=== PATIENT | male | born 1970 | race Caucasian/White ===

== ENCOUNTER 2018-03-14 10:22 | Emergency (ER) | payer BC ==
--- OUTSIDE RECORDS SUMMARY | 2018-03-14 11:17 | XMS REPORT ---
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 Payers Type Date Identification Numbers Payment Provider Subscriber Health Maintenance Policy Number: BCBS Ppo Simon Ng Organization (O) [id number] PayID: [id number] [address] [address] [place] [address] Medigap Part B Expires: 10/17/2015 Policy Number: [facility] Simon Ng [id number] PayID: [id number] [address] [address] [place] [phone] Problems Date Description Provider Status Onset: 01/09/2014 Neck sprain Carmita Morrow PA Active Onset: 01/01/2012 Insomnia Carmita Morrow PA Active Onset: 05/28/2011 Irritable bowel syndrome Carmita Morrow PA Active Onset: 05/28/2011 Benign essential hypertension Carmita Morrow PA Active Onset: 05/28/2011 Mixed hyperlipidemia Carmita Morrow PA Active Family History Date Family Member(s) Problem(s) Comments Father Hypertension Father Hypercholesterolemia Father Thyroid Disease Mother Hypertension Mother Cancer, Colon Mother Asthma Children 2 First Son No Current Problems First Daughter No Current Problems Siblings 5 : (2010) (age 49 Years) Second Brother due to Accident tractor Second Brother No Current Problems Third Brother Hypertension Social History Type Date Description Comments Education Highest level completed, 12th grade Marital Status Lives With Spouse Lives With Daughter Lives With Son 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 Cigarette Use Never Smoked Cigarettes Smokeless Tobacco Current Smokeless Tobacco User, Uses 2 times Daily ETOH Use Denies alcohol use Smoking Patient has never smoked Daily Caffeine Consumes on average 3 cups of coffee per day Allergies, Adverse Reactions, Alerts Date Description Reaction Status Severity Comments 02/26/2017 NKDA active 02/26/2017 Seasonal active Medications Medication Date Status Form Strength Qnty SIG Indications Ordering Provider Lisinopril 03/11/ Active Tablets 10mg 30tabs 1 by I10 Yu 2018 mouth Sarahi MD daily in the morning Fluticasone 08/31/ Active Suspension 50mcg/Act 16unit inhale H68.022 Yu Propionate 2016 s one spray Sarahi MD in each nostril twice a day J30.9 Cyclobenzaprine 02/26/2017 Active Tablets 10mg 90tabs take one S16.1xxS Yu, HCL tablet by MD Sarahi mouth at bedtime (caution: can cause sedation) M54.2 Zolpidem Tartrate 02/06/2016 Active Tablets 5mg 30tabs 1 by G47.00 Yu mouth MD Sarahi every night at bedtime as needed Lansoprazole 11/19/[address] 30mg 90caps take one K21.9 Yu, capsule MD Sarahi by mouth every day as needed Famciclovir 07/11/2013 Active Tablets 500m 9tabs 3 by B00.89 teresa Nicholas mouth x1 MD Sarahi as needed onset of cold sore Naproxen Sodium 05/29/2010 Active Tablets 550m 180tabs take one M54.2 Nicholas, g tablet by MD Sarahi mouth twice a day as needed Skelaxin 08/11/2016 Hx Tablets 800m 14tabs 1 po qhs S16.1xx [place], - g prn S DO Raul 02/26/2017 Silvadene 05/14/2016 Hx Cream 1% 50gm Apply to [place], - burn bid DO Raul 05/21/2016 x 1 week and prn Cyclobenzaprine 06/26/2015 Hx Tablets 10mg 90tabs take one S16.1xx [place], HCL - tablet by Sarbjit Carter DO 08/11/2016 mouth at bedtime (caution: can cause sedation) Flonase 01/09/2014 Hx Suspension 50mc 16units inhale Yu, - g/Ac one spray MD Sarahi 08/31/2017 t in each nostril twice a day Cyclobenzaprine 07/11/2013 Hx Tablets 5mg 90tabs 1 po qhs [place], HCL - prn pain DO Raul 06/26/2015 caution: sedation Niacin 12/04/2010 Hx Tablets 500m 1 po Francisco, - g daily MD Austin 02/06/2016 Atenolol 05/01/2010 Hx Tablets 100m 90tabs take one I10 Nicholas, - g tablet by MD Sarahi 03/11/2018 mouth every day Nexium 11/29/[address] 40mg 90caps 1 po [place], - daily prn DO Raul 11/19/2015 Immunizations CPT Code Status Date Vaccine Lot # [id number] Given 08/15/2016 Tdap (Adacel) Ages 7 And Above Only 39236 Given 07/11/2013 Afluria Or Fluvirin Flu Vac Intramuscular 79568 Given 07/08/2012 Afluria Or Fluvirin Flu Vac Intramuscular 85384 Given 08/06/2010 Tdap (Adacel) Ages 7 And Above Only 00449 Given 07/30/2008 Afluria Or Fluvirin Flu Vac Intramuscular 72802 Given 07/30/2008 Afluria Or Fluvirin Flu Vac Intramuscular [id number] Refused 03/11/2018 Afluria Imunization 97695 Refused 02/26/2017 Influenza Virus Vaccine,Quadrivalent,Split,Preserv Free 3 Yrs+ Vital Signs Date Vital Result Comment 03/11/2018 Weight 266.00 lb Heart Rate 66 /min BP Systolic 122 mmHg BP Diastolic 80 mmHg Respiratory Rate 18 /min Height 73.5 inches 6'1.50" BMI (Body Mass Index) 34.6 kg/m2 08/31/2017 Weight 260.00 lb Heart Rate 72 /min BP Systolic 120 mmHg BP Diastolic 80 mmHg Respiratory Rate 18 /min Height 73.5 inches 6'1.50" BMI (Body Mass Index) 33.8 kg/m2 02/26/2017 Weight 262.00 lb PT Refused To Take Off Boots Heart Rate 70 /min BP Systolic 138 mmHg BP Diastolic 86 mmHg Respiratory Rate 18 /min Height 73.5 inches 6'1.50" BMI (Body Mass Index) 34.1 kg/m2 08/11/2016 Weight 262.00 lb Heart Rate 70 /min BP Systolic 126 mmHg BP Diastolic 80 mmHg Respiratory Rate 18 /min Height 73.5 inches 6'1.50" BMI (Body Mass Index) 34.1 kg/m2 02/06/2016 Weight 258.00 lb Heart Rate 78 /min BP Systolic 128 mmHg BP Diastolic 84 mmHg Respiratory Rate 18 /min Height 73.5 inches 6'1.50" BMI (Body Mass Index) 33.6 kg/m2 06/26/2015 Weight 262.00 lb BP Systolic 158 mmHg BP Diastolic 90 mmHg BP Systolic Recheck 142 mmHg BP Diastolic Recheck 86 mmHg Height 73.5 inches 6'1.50" BMI (Body Mass Index) 34.1 kg/m2 07/04/2014 Weight 254.00 lb Heart Rate 72 /min BP Systolic 120 mmHg BP Diastolic 76 mmHg Respiratory Rate 18 /min Height 73.5 inches 6'1.50" 07/03/2014 BP Systolic 126 mmHg BP Diastolic 76 mmHg 07/03/2014 Weight 254.00 lb Heart Rate 70 /min BP Systolic 134 mmHg BP Diastolic 80 mmHg Respiratory Rate 18 /min Height 73.5 inches 6'1.50" 01/09/2014 Weight 258.00 lb Heart Rate 68 /min BP Systolic 132 mmHg BP Diastolic 80 mmHg Respiratory Rate 18 /min Height 73.5 inches 6'1.50" 07/11/2013 Weight 256.00 lb Heart Rate 68 /min BP Systolic 120 mmHg BP Diastolic 68 mmHg Respiratory Rate 18 /min 01/06/2013 Weight 256.00 lb Heart Rate 76 /min BP Systolic 130 mmHg BP Diastolic 80 mmHg Respiratory Rate 18 /min 07/08/2012 Weight 251.00 lb Heart Rate 70 /min BP Systolic 122 mmHg BP Diastolic 70 mmHg Respiratory Rate 18 /min Height 73.5 inches 6'1.50" 01/01/2012 Weight 247.00 lb Heart Rate 74 /min BP Systolic 126 mmHg BP Diastolic 80 mmHg Respiratory Rate 18 /min Height 73.5 inches 6'1.50" 05/28/2011 Weight 243.00 lb Heart Rate 78 /min BP Systolic 120 mmHg BP Diastolic 80 mmHg Respiratory Rate 20 /min Height 73.5 inches 6'1.50" 12/04/2010 BP Systolic 130 mmHg BP Diastolic 86 mmHg 12/04/2010 Weight 242.00 lb Heart Rate 60 /min BP Systolic 118 mmHg L Arm BP Diastolic 80 mmHg L Arm Respiratory Rate 18 /min 05/29/2010 Weight 244.00 lb Heart Rate 64 /min BP Systolic 132 mmHg l arm BP Diastolic 88 mmHg l arm Respiratory Rate 18 /min 11/29/2009 Weight 235.00 lb Heart Rate 77 /min BP Systolic 126 mmHg BP Diastolic 74 mmHg Respiratory Rate 17 /min 12/20/2008 Body Temperature 97.9 F Weight 236.00 lb Heart Rate 76 /min BP Systolic 120 mmHg BP Diastolic 80 mmHg Respiratory Rate 15 /min 10/19/2008 Weight 240.00 lb Heart Rate 60 /min BP Systolic 128 mmHg BP Diastolic 82 mmHg Respiratory Rate 14 /min Height 74.5 inches 6'2.50" 07/11/2008 BP Systolic 116 mmHg BP Diastolic 86 mmHg 07/11/2008 Weight 240.00 lb Heart Rate 60 /min BP Systolic 120 mmHg BP Diastolic 90 mmHg Height 74.5 inches 6'2.50" 03/02/2008 BP Systolic 124 mmHg BP Diastolic 86 mmHg 03/02/2008 Weight 240.00 lb Heart Rate 72 /min BP Systolic 134 mmHg BP Diastolic 90 mmHg Respiratory Rate 16 /min Height 74.5 inches 6'2.50" 2007 BP Systolic 112 mmHg BP Diastolic 74 mmHg 2007 Weight 232.00 lb Heart Rate 64 /min BP Systolic 130 mmHg BP Diastolic 90 mmHg Height 74.5 inches 6'2.50" 10/14/2007 Weight 230.00 lb Heart Rate 73 /min BP Systolic 122 mmHg BP Diastolic 86 mmHg Respiratory Rate 18 /min Height 74.5 inches 6'2.50" 08/31/2007 BP Systolic 132 mmHg BP Diastolic 90 mmHg 08/31/2007 Weight 233.00 lb Heart Rate 84 /min BP Systolic 148 mmHg BP Diastolic 90 mmHg Respiratory Rate 18 /min Height 74.5 inches 6'2.50" 06/21/2007 BP Systolic 134 mmHg BP Diastolic 94 mmHg 06/21/2007 Weight 231.00 lb Heart Rate 69 /min BP Systolic 128 mmHg BP Diastolic 90 mmHg Respiratory Rate 18 /min Height 74.5 inches 6'2.50" 08/23/2006 Body Temperature 97.6 F Heart Rate 80 /min BP Systolic 124 mmHg BP Diastolic 84 mmHg Respiratory Rate 12 /min Height 74.5 inches 6'2.50" 06/22/2006 Weight 226.25 lb Heart Rate 78 /min BP Systolic 128 mmHg BP Diastolic 90 mmHg Respiratory Rate 10 /min Height 74.5 inches 6'2.50" Results Test Date Test Result H/L Range Note Comprehensive Met Panel-FCMG 03/03/2018 Sodium 141 mmol/L 135-146 1, 2 Potassium 4.3 mmol/L 3.5-5.2 1 Chloride# 105 mmol/L 97-110 1, 3 Carbon Dioxide 25 mmol/L 24-34 1 Glucose 114 mg/dL High 70-105 1 BUN 17 mg/dL 6-26 1 Creatinine 1.1 mg/dL 0.5-1.4 1 Calcium 9.7 mg/dL 8.5-10.2 1 Total Protein 6.3 g/dL 6.0-8.0 1 Albumin 4.0 g/dL 3.6-4.9 1 Globulin 2.3 g/dL 2.0-3.5 1 A/G Ratio 1.7 Ratio 1.0-2.2 1 Total Bilirubin 0.5 mg/dL 0.1-1.3 1 Alkaline Phosphatase 116 U/L 24-140 1 Alt 16 U/L 3-42 1 Ast 15 U/L 8-42 1 Mari Egfr >60 >60 1, 4 Non Mari Egfr >60 >60 1, 5 Anion Gap 11 mmol/L 5-15 1, 6 Lipid 03/03/2018 Cholesterol 186 mg/dL 50-199 1 Triglycerides 126 mg/dL 30-200 1 HDL 36 mg/dL 29-71 1, 7 Chol/ HDL Ratio 5.2 ratio 4.0-6.7 1 VLDL 25 mg/dL 2-29 1 LDL (Calc) 125 mg/dL High 20-99 1, 8 CBC With Auto Diff 03/03/2018 WBC 6.8 K/uL 4.1-11.0 1 RBC 4.44 M/uL Low 4.60-6.10 1 Hemoglobin 13.6 gm/dL 13.5-18.0 1 Hematocrit 39.1 % Low 41.0-53.0 1 MCV 87.9 fL 80.0-97.0 1 MCH 30.5 pg 27.0-32.0 1 MCHC 34.7 g/dL 32.0-36.0 1 RDW 12.6 % 11.5-14.5 1 PLT Count 291 K/ul 140-400 1 MPV 8.5 FL 7.1-10.7 1 Neutrophil 54.9 % 35.0-75.0 1 Lymphocyte 33.6 % 16.0-52.0 1 Monocyte 8.5 % 2.0-10.0 1 Eosinophil 2.6 % 0.0-5.0 1 Basophil 0.4 % 0.0-4.0 1 Abs Neutrophils 3.7 K/uL 2.1-8.0 1 Abs Lymphocytes 2.3 K/uL 0.8-5.5 1 Abs Monocytes 0.6 K/uL 0.1-1.0 1 Abs Eosinophils 0.2 K/uL 0.0-0.5 1 Abs Basophils 0.0 K/uL 0.0-0.3 1 Microalb/Creat Panel 03/03/2018 Creatinine, Urine 151.3 mg/dL 1 Microalb/Creat Urine 4.63 ug/mgCreat 0.00-30.00 1 Microalbumin 7.0 ug/ml 0.0-20.0 1 Comprehensive Metabolic (CMP) 02/26/2017 Sodium 139 mmol/L 135-146 9, 10 Potassium 4.6 mmol/L 3.5-5.2 9 Chloride# 104 mmol/L 97-110 9, 11 Carbon Dioxide 26 mmol/L 24-34 9 Glucose 94 mg/dL 70-105 9 BUN 16 mg/dL 6-26 9 Creatinine 0.9 mg/dL 0.5-1.4 9 Calcium 9.6 mg/dL 8.5-10.2 9 Total Protein 6.7 g/dL 6.0-8.0 9 Albumin 4.6 g/dL 3.6-4.9 9 Globulin 2.1 g/dL 2.0-3.5 9 A/G Ratio 2.2 Ratio 1.0-2.2 9 Total Bilirubin 0.8 mg/dL 0.1-1.3 9 Alkaline Phosphatase 85 U/L 24-140 9 Alt 20 U/L 3-42 9 Ast 19 U/L 8-42 9 Mari Egfr >60 >60 9, 12 Non Mari Egfr >60 >60 9, 13 Anion Gap 14 mmol/L 7-16 9, 14 CBC With Auto Diff 02/26/2017 WBC 6.5 K/uL 4.1-11.0 9 RBC 4.87 M/uL 4.60-6.10 9 Hemoglobin 14.9 gm/dL 13.5-18.0 9 Hematocrit 43.2 % 41.0-53.0 9 MCV 88.6 fL 80.0-97.0 9 MCH 30.6 pg 27.0-32.0 9 MCHC 34.5 g/dL 32.0-36.0 9 RDW 12.5 % 11.5-14.5 9 PLT Count 243 K/ul 140-400 9 Neutrophil 41.7 % 35.0-75.0 9 Lymphocyte 45.9 % 16.0-52.0 9 Monocyte 8.8 % 2.0-10.0 9 Eosinophil 2.8 % 0.0-5.0 9 Basophil 0.8 % 0.0-4.0 9 Abs Neutrophils 2.7 K/uL 2.1-8.0 9 Abs Lymphocytes 3.0 K/uL 0.8-5.5 9 Abs Monocytes 0.6 K/uL 0.1-1.0 9 Abs Eosinophils 0.2 K/uL 0.0-0.5 9 Abs Basophils 0.1 K/uL 0.0-0.3 9 Lipid 02/26/2017 Cholesterol 179 mg/dL 50-199 9 Triglycerides 128 mg/dL 30-200 9 HDL 38 mg/dL 29-71 9, 15 Chol/ HDL Ratio 4.7 ratio 4.0-6.7 9 VLDL 26 mg/dL 2-29 9 LDL (Calc) 115 mg/dL High 20-99 9, 16 Basic (BMP) 01/30/2016 Sodium 138 mmol/L 134-142 Potassium 4.5 mmol/L 3.5-5.2 Chloride 104 mmol/L 97-109 Carbon Dioxide 28 mmol/L 24-34 Glucose 103 mg/dL 70-105 BUN 19 mg/dL 6- Creatinine 1.0 mg/dL 0.5-1.4 Calcium 9.2 mg/dL 8.5-10.2 Anion Gap 11 mmol/L 6-14 Non Mari Egfr >60 >60 17 Mari Egfr >60 >60 18 Lipid 01/30/2016 Cholesterol 180 mg/dL 50-199 Triglycerides 108 mg/dL 30-200 HDL 35 mg/dL 29-71 19 Chol/ HDL Ratio 5.1 ratio 4.0-6.7 VLDL 22 mg/dL 2-29 LDL (Calc) 123 mg/dL High 20-99 20 Lipid Panel 01/09/2014 Chol/HDL Ratio 5.6 ratio Cholesterol 191.0 mg/dL 50.0-199.0 HDL 34.0 mg/dL 29.0-67.0 LDL, Calculated 107.2 mg/dL 20.0-129.0 Triglycerides 249.0 mg/dL 30.0-249.0 vLDL 49.8 ng/dL Laboratory test finding 01/09/2014 BUN 13.0 mg/dL 9.0-21.0 BUN/Creat Ratio 11.8 ratio Low 12.0-20.0 Calcium 9.6 mg/dL 8.7-10.5 Chloride 104.0 mmol/L 98.0-107.0 Co2 27.0 mmol/L 22.0-30.0 Creatinine-Serum 1.1 mg/dL 0.8-1.5 Glucose 102.0 mg/dL 75.0-110.0 Potasium 4.5 mmol/L 3.6-5.0 Sodium 139.0 mmil/L 137.0-145.0 eGFR 78.4 Laboratory test finding 07/01/2012 Absolute Basophils 0.068 K/ul 0.0-0.3 21 Absolute Eosinophils 0.218 K/ul 0.0-0.5 21 Absolute Lymphocytes 2.96 K/ul 0.8-4.8 21 Absolute Monocytes 0.650 K/ul 0.1-1.0 21 Absolute Neutrophils 3.19 K/ul 2.05-7.63 21 Alt 32 U/L 21-72 21 Anion Gap 15 mmol/L 10-20 21 Ast 26 U/L 17-59 21 BUN 20 mg/dL 9-21 21 BUN/CR Ratio 21.9 Ratio High 12-20 21 Basophil 1.0 % 0-2 21 Calcium 9.7 mg/dL 8.7-10.5 21 Carbon Dioxide 26 mmol/L 22-30 21 Chloride 102 mmol/L 98-107 21 Creatinine, Serum 0.9 mg/dL 0.8-1.5 21 Eosinophil 3.1 % 0-4 21 Glucose 98 mg/dL 75-110 21 Hematocrit 42.9 % 37.0-51.0 21 Hemoglobin 15.7 GM/dl 12.0-16.0 21 Lymphocytes 41.8 % 20-44 21 MCH 32.0 pg 26.0-32.0 21 MCHC 36.5 g/dL High 31.0-36.0 21 MCV 88 FL 80-97 21 Monocytes 9.2 % 2-10.0 21 Neutrophils 45.0 % Low 50-70 21 Platelet Count 245 K/ul 140-440 21 Potassium 4.7 mmol/L 3.6-5.0 21 RBC 4.90 M/ul 4.2-6.3 21 RDW 10.8 % Low 11.5-14.5 21 Sodium 138 mmol/L 137-145 21 WBC 7.1 K/ul 4.1-10.9 21 Lipid Panel 07/01/2012 Chol/HDL Ratio 5.2 21, 22 Cholesterol 195 mg/dL 50-199 21 HDL Cholesterol 37 mg/dL 29-67 21 LDL 121 mg/dL 20-129 21 Triglycerides 183 mg/dL 30-249 21 VLDL Cholesterol 37 mg/dL 21 Laboratory test finding 05/28/2011 Absolute Basophils 0.086 K/ul 0.0-0.3 Absolute Eosinophils 0.136 K/ul 0.0-0.5 Absolute Lymphocytes 2.72 K/ul 0.8-4.8 Absolute Monocytes 0.580 K/ul 0.1-1.0 Absolute Neutrophils 3.47 K/ul 2.05-7.63 Alt 35 U/L 21-72 Anion Gap 19 mmol/L 10-20 Ast 21 U/L 17-59 BUN 18 mg/dL 9-21 BUN/CR Ratio 17.8 Ratio 12-20 Basophil 1.2 % 0-2 Calcium 9.2 mg/dL 8.7-10.5 Carbon Dioxide 27 mmol/L 22-30 Chloride 103 mmol/L 98-107 Creatinine, Serum 1.0 mg/dL 0.8-1.5 Eosinophil 1.9 % 0-4 Glucose 96 mg/dL 75-110 Hematocrit 42.5 % 37.0-51.0 Hemoglobin 14.8 GM/dl 12.0-16.0 Lymphocytes 38.9 % 20-44 MCH 31.1 pg 26.0-32.0 MCHC 35.0 g/dL 31.0-36.0 MCV 89 FL 80-97 Monocytes 8.3 % 2-10.0 Neutrophils 49.6 % Low 50-70 Platelet Count 252 K/ul 140-440 Potassium 4.6 mmol/L 3.6-5.0 RBC 4.77 M/ul 4.2-6.3 RDW 11.3 % Low 11.5-14.5 Sodium 145 mmol/L 137-145 WBC 7.0 K/ul 4.1-10.9 Lipid Panel 05/28/2011 Chol/HDL Ratio 5.1 23 Cholesterol 180 mg/dL 50-199 HDL Cholesterol 35 mg/dL 29-67 LDL 111 mg/dL 20-129 Triglycerides 168 mg/dL 30-249 VLDL Cholesterol 34 mg/dL Laboratory test finding 09/18/2010 Alt 34 U/L - 21 Ast 27 U/L 59 21 Lipid Panel 09/18/2010 Chol/HDL Ratio 4.3 21, 24 Cholesterol 161 mg/dL 50-199 21 HDL Cholesterol 37 mg/dL 29-67 21 LDL 99 mg/dL 20-129 21 Triglycerides 123 mg/dL 30-249 21 VLDL Cholesterol 25 mg/dL 21 Laboratory test finding 05/22/2010 Anion Gap 13 mmol/L 10-20 21 BUN 18 mg/dL 9-21 21 BUN/CR Ratio 14.7 Ratio 12- 21 Calcium 9.3 mg/dL 8.7-10.5 21 Carbon Dioxide 27 mmol/L 22-30 21 Chloride 106 mmol/L 98-107 21 Creatinine, Serum 1.2 mg/dL 0.8-1.5 21 Glucose 94 mg/dL 75-110 21 Potassium 4.3 mmol/L 3.6-5.0 21 Sodium 142 mmol/L 137-145 21 Lipid Panel 05/22/2010 Chol/HDL Ratio 6.0 21, 25 Cholesterol 174 mg/dL 50-199 21 HDL Cholesterol 29 mg/dL 29-67 21 LDL 71 mg/dL 20-129 21 Triglycerides 371 mg/dL High 30-249 21 VLDL Cholesterol 74 mg/dL 21 Laboratory test finding 07/04/2008 Alt 29 U/L -72 21 Anion Gap 14 mmol/L 10-20 21 Ast 25 U/L 17-59 21 BUN 16 mg/dL 9-21 21 BUN/CR Ratio 13.4 Ratio 12-20 21 Calcium 9.5 mg/dL 8.7-10.5 21 Carbon Dioxide 25 mmol/L 22-30 21 Chloride 105 mmol/L 98-107 21 Creatinine, Serum 1.2 mg/dL 0.8-1.5 21 Glucose 97 mg/dL 75-110 21 Potassium 4.6 mmol/L 3.6-5.0 21 Sodium 140 mmol/L 137-145 21 Lipid Panel 07/04/2008 Chol/HDL Ratio 5.7 21, 26 Cholesterol 167 mg/dL 50-199 21 HDL Cholesterol 29 mg/dL 29-67 21 LDL 103 mg/dL 20-129 21 Triglycerides 176 mg/dL 30-249 21 VLDL Cholesterol 35 mg/dL 21 Laboratory test finding 03/05/2008 Direct LDL 100 mg/dL High 0-99 Laboratory test finding 03/02/2008 Absolute Basophils 0.04 K/ul 0.0-0.3 Absolute Eosinophils 0.17 K/ul 0.0-0.5 Absolute Lymphocytes 2.85 K/ul 0.8-4.8 Absolute Monocytes 0.45 K/ul 0.1-1.0 Absolute Neutrophils 3.79 K/ul 2.05-7.63 Anion Gap 17 mmol/L 10-20 BUN 12 mg/dL 9-21 BUN/CR Ratio 12.0 Ratio 12-20 Basophil 0.6 % 0-2 Calcium 9.9 mg/dL 8.7-10.5 Carbon Dioxide 28 mmol/L 22-30 Chloride 102 mmol/L 98-107 Creatinine, Serum 1.0 mg/dL 0.8-1.5 Eosinophil 2.3 % 0-4 Glucose 89 mg/dL 75-110 Hematocrit 44.3 % 37.0-51.0 Hemoglobin 15.8 GM/dl 12.0-16.0 Lymphocytes 39.0 % 20-44 MCH 31.7 pg 26.0-32.0 MCHC 35.7 g/dL 31.0-36.0 MCV 89 FL 80-97 Monocytes 6.2 % 2-10.0 Neutrophils 51.9 % 50-70 Platelet Count 277 K/ul 140-440 Potassium 4.5 mmol/L 3.6-5.0 RBC 4.98 M/ul 4.2-6.3 RDW 11.4 % Low 11.5-14.5 Sodium 143 mmol/L 137-145 WBC 7.3 K/ul 4.1-10.9 Lipid Panel 03/02/2008 Chol/HDL Ratio 6.4 27 Cholesterol 192 mg/dL 50-199 HDL Cholesterol 30 mg/dL 29-67 LDL Unable to calcul <See Note> mg/dL 28 Triglycerides 549 mg/dL High 30-249 VLDL Cholesterol 107 mg/dL 1 before visit 02/2018 2 Updated reference range on new analyzer 3 Updated reference range on new analyzer 4 Concerning GFR Guidelines for Americans: Normal function or mild renal disease, if clinically at risk: >/=60 mL/min Moderately decreased: 30-59 Severely decreased: 15-29 Renal failure: <15 5 Concerning GFR Guidelines: Normal function or mild renal disease, if clinically at risk: >/=60 mL/min Moderately decreased: 30-59 Severely decreased: 15-29 Renal failure: <15 Glomerular Filtration Rate (GFR) is estimated based on the MDRD equation, which assumes a steady state for creatinine as recommended by the National Kidney Disease Education Program in conjunction with the National Institutes of Health and the National Kidney Foundation. Clinical conditions in which it may be necessary to measure GFR by using clearance methods include extremes of age and body size, severe malnutrition or obesity, diseases of skeletal muscle, paraplegia or quadriplegia, vegetarian diet, rapidly changing kidney function, and calculation of the dose of potentially toxic drugs that are excreted by the kidneys. 6 Updated Reference Range 7 Per NCEP ATP III Guidelines: Results lower than 40 mg/dL are suggestive of increased risk for coronary artery disease. Results > or=to 60 mg/dL are considered a negative risk factor. 8 Per NCEP ATP III Guidelines: Normal Population <130 Patients with medical conditions: CHD/DM Optimal: <100 Borderline high: 130-159 High: 160-189 Very high: >189 9 today or schedule ;letter Fastin hours today or schedule ;letter Fastin hours today or schedule ;letter Fastin hours 10 Updated reference range on new analyzer 11 Updated reference range on new analyzer 12 Concerning GFR Guidelines for Americans: Normal function or mild renal disease, if clinically at risk: >/=60 mL/min Moderately decreased: 30-59 Severely decreased: 15-29 Renal failure: <15 13 Concerning GFR Guidelines: Normal function or mild renal disease, if clinically at risk: >/=60 mL/min Moderately decreased: 30-59 Severely decreased: 15-29 Renal failure: <15 Glomerular Filtration Rate (GFR) is estimated based on the MDRD equation, which assumes a steady state for creatinine as recommended by the National Kidney Disease Education Program in conjunction with the National Institutes of Health and the National Kidney Foundation. Clinical conditions in which it may be necessary to measure GFR by using clearance methods include extremes of age and body size, severe malnutrition or obesity, diseases of skeletal muscle, paraplegia or quadriplegia, vegetarian diet, rapidly changing kidney function, and calculation of the dose of potentially toxic drugs that are excreted by the kidneys. 14 Updated reference range on new analyzer 15 Per NCEP ATP III Guidelines: Results lower than 40 mg/dL are suggestive of increased risk for coronary artery disease. Results > or=to 60 mg/dL are considered a negative risk factor. 16 Per NCEP ATP III Guidelines: Normal Population <130 Patients with medical conditions: CHD/DM Optimal: <100 Borderline high: 130-159 High: 160-189 Very high: >189 17 Concerning GFR Guidelines: Normal function or mild renal disease, if clinically at risk: >/=60 mL/min Moderately decreased: 30-59 Severely decreased: 15-29 Renal failure: <15 Glomerular Filtration Rate (GFR) is estimated based on the MDRD equation, which assumes a steady state for creatinine as recommended by the National Kidney Disease Education Program in conjunction with the National Institutes of Health and the National Kidney Foundation. Clinical conditions in which it may be necessary to measure GFR by using clearance methods include extremes of age and body size, severe malnutrition or obesity, diseases of skeletal muscle, paraplegia or quadriplegia, vegetarian diet, rapidly changing kidney function, and calculation of the dose of potentially toxic drugs that are excreted by the kidneys. 18 Concerning GFR Guidelines for Americans: Normal function or mild renal disease, if clinically at risk: >/=60 mL/min Moderately decreased: 30-59 Severely decreased: 15-29 Renal failure: <15 19 Per NCEP ATP III Guidelines: Results lower than 40 mg/dL are suggestive of increased risk for coronary artery disease. Results > or=to 60 mg/dL are considered a negative risk factor. 20 Per NCEP ATP III Guidelines: Normal Population <130 Patients with medical conditions: CHD/DM Optimal: <100 Borderline high: 130-159 High: 160-189 Very high: >189 21 FASTING 22 Normal Range: Male: <4.98 Female: <4.45 23 Normal Range: Male: <4.98 Female: <4.45 24 Normal Range: Male: <4.98 Female: <4.45 25 Normal Range: Male: <4.98 Female: <4.45 26 Normal Range: Male: <4.98 Female: <4.45 27 Normal Range: Male: <4.98 Female: <4.45 28 Unable to calculate LDL due to Triglycerides >400mg/dl Procedures Date CPT Code Description Status Comment 08/03/2017 Colonoscopy Completed 08/03/17 ashley Medina 5 yr due to fam history Document: 08/03/17 - Colonoscopy Op Report Document: 08/03/17 - Pathology/Biopsy Result - Bren 02/26/2017 [id number] Ultrasound, Extremity, Completed Nonvascular, Real-Time W/Image Doc,Limited 02/26/2017 81177 Echography Chest B-Scan Completed Encounters Type Date Location Provider CPT E/M Dx Office Visit 08/31/2017 8:30a [facility] [place] [address] I10 M54.2 K21.9 G47.00 F17.220 Z80.0 B00.89 H68.022 Office Visit 02/26/2017 9:00a [facility] [place] [address] D48.1 I10 K21.9 M54.2 S16.1xxS G47.00 F17.220 Z80.0 B00.89 J30.9 Office Visit 08/11/2016 8:30a [facility] [place] [address] I10 K21.9 S16.1xxS G47.00 Office Visit 02/06/2016 8:30a [facility] [place] [address] I10 K21.9 S16.1xxS G47.00 Office Visit 06/26/2015 2:45p [facility] [place] [address] 401.1 847.0 564.1 381.81 Plan of Care Future Appointment(s):04/11/2018 8:30 am - Sarahi Nicholas MD at [facility]2017 - Sarahi Nicholas MDI10 Essential (primary) hypertensionNew Medication: Lisinopril 10 mgComments:Htn--BPs appear stable and in good control, reminded goal of BP < 140/90 ideally. He is concernedabout potential ED side effects in the future and asks to chane meds. Careful discuss, med does not directly cause ED, it's associated withit, hormone problems and vascular disease cause ED Reviewed the prior bp history, original dx was more for diastolic htn, bps were about 90 many times. Recommend: atenolol 50mg for 1 week to help reduce risks for withdrawal arrhythmia/tachycardia, and then stop and start lisinopril 10mg in the morning. Call for concerns, recheck ov in about 4-5 weeks SE of lisinopril, rare cough, elev pot/change in kidney function. Please call for medication side effects such as cough, rash or any concerns. Encouraged diet modified in fat and no added salt. Limit alcohol to < 1 per day. Encouraged regular exercise of 30 min most days per week. Encouraged pt to continue to monitor BP and call if > 140/90 on a regular basis. Please call if you feel your blood pressure is under 110 systolic and/or causing you symptoms such as dizziness, lightheadedness, or other concerns.Follow up:next visit about 5 weeks fu htn nadia in meds lab after visit and recheck cbc, obtain records Dr Kassi [id number] Gastro-esophageal reflux disease without esophagitisComments:GERD/esophagitis--Symptoms moderately well controlled on current acid cristina therapy. Reminded pt we need to control the symptoms as those symptoms would be signs of gastric acid eroding on the esophagus, which can lead to complications. Call if has heartburn more than 2 - 3 times per week. Pt should take meds to control any break through symptoms. Please be sure to take your acid cristina 30minbefore a meal. Cautioned risks for malabsorption certain vits and possible custodial risks for [id number] Nicotine dependence, chewing tobacco, uncomplicatedComments:encourage stopping of tobacco chew.it carries risks for cardiovascular disease as well as cancers. please let me know if you need assistance. we use chantix, bupropion, david replacement to help treat.He has tapered over time.S82.102A Unsp fracture of upper end of LEFT tibia, init for clos fxComments:care with Dr Solitario, obtain [id number] Other herpesviral infectionComments:h/o recurrent cold sore, discussed likely cause for HSV type I or II. Due to recurrent outbreaks, discussed treatment when they occur with antiviral. Careful instructions in use , take meds at first onset of cold sore sxs, within 24hours. May help to lessen outbreak and related discomfort.G47.00 Insomnia, unspecifiedComments:Pt has used Ambien periodically for years, current use < 1 per monthreviewed controlled substanceagreement 02/26/17 refills are done at office visits. He states this visit he is not using zolpidem but for very rare use, finds cyclobenzaprine works much better for esnlcowxvjG74.9 Allergic rhinitis, unspecifiedComments:allergies--Encouraged pt to continue allergy meds during allergy season. Should take daily to gain the most benefit. Call prn increased allergy symptoms to add additional meds.Z13.6 Encounter for screening for cardiovascular disordersComments:screening for ischemic heart disease riskper atpIV, your risk is estimated at <5% which is considered low riskplease note, the chew tobacco still likely contributes to your CV risk, but smoking is the detail the assessment uses. stopping tobacco is still important no aspirin is recommendedno statins are recommendedhealthy diet and regular exercise (150min per week, 10k steps per day) are recommendedwe should rescreen periodically, sooner if another reason presents we reviewed signs/ symptoms of cardiovascular disease, heart disease, stroke, please call, seek ER care if [id number] Anemia, [id number] Body mass index (BMI) 34.0-34.9, adult
[2018-03-14 11:29] VITALS: BP 149/100
--- NOTE | 2018-03-14 11:30 | UC ---
Throat Pain/Nasal Bryant HPI - HPI Summary HPI Summary: 47 yo male presents with sinus pain/pressure/congestion for the last 5 days. He tells me that he gets sinus infections once a year and he always takes augmentin and a medrol maddie with good relief. Has not been taking anything OTC. Denies fever, chills, sore throat, cough, SOB, chest pain. - History of Current Complaint Chief Complaint: UCRespiratory Stated Complaint: SINUS COMPLAINT Time Seen by Provider: 03/14/18 11:30 Hx Obtained From: Patient Onset/Duration: Gradual Onset Pain Intensity: 0 - Allergies/Home Medications Allergies/Adverse Reactions: Allergies Allergy/AdvReac Type Severity Reaction Status Date / Time MS Dust Mite Extract Allergy Intermediate Congestion Verified 03/14/18 11:23 PMH/Surg Hx/FS Hx/Imm Hx Cardiovascular History: Hypertension GI/ History: Gastroesophageal Reflux Other History Of: Negative For: HIV, Hepatitis B, Hepatitis C, Anticoagulant Therapy - Surgical History Surgical History: Yes Surgery Procedure, Year, and Place: 1998 LEFT knee. 2005 Deviated Septum repair. 2017 Left knee. 2017L ear tube placement - Family History Known Family History: Positive: Hypertension Negative: Cardiac Disease - Social History Occupation: Employed Full-time Lives: With Family Alcohol Use: Occasionally Substance Use Type: None Smoking Status (MU): Light Every Day Tobacco Smoker Type: Smokeless Tobacco - Immunization History Most Recent Influenza Vaccination: 07/30 Most Recent Tetanus Shot: UNSURE Review of Systems Constitutional: Negative Skin: Negative Eyes: Negative ENT: Nasal Discharge, Sinus Congestion, Sinus Pain/Tenderness Respiratory: Negative Cardiovascular: Negative Gastrointestinal: Negative Neurovascular: Negative Neurological: Negative Psychological: Negative All Other Systems Reviewed And Are Negative: Yes Physical Exam - Summary Physical Exam Summary: GENERAL: NAD. WDWN. No pain distress. SKIN: No rashes, sores, lesions, or open wounds. HEENT: Head: AT/NC Eyes: EOM intact. Conjunctiva clear without inflammation or discharge. Ears: Hearing grossly normal. TMs intact, no bulging, erythema, or edema. Nose: Nasal mucosa mildly swollen and erythematous with yellow/ clear discharge. TTP maxillary and frontal sinus. Throat: Posterior oropharynx without exudates, erythema, or tonsillar enlargement. Uvula midline. NECK: Supple. Nontender. No lymphadenopathy. CHEST: CTAB. No r/r/w. No accessory muscle use. Breathing comfortably and in no distress. CV: RRR. Without m/r/g. Pulses intact. Brisk cap refill. NEURO: Alert. CN II-XII grossly intact. PSYCH: Age appropriate behavior. Triage Information Reviewed: Yes Vital Signs: Initial Vital Signs Temp 98.9 F 03/14/18 11:22 Pulse 69 03/14/18 11:22 Resp 18 03/14/18 11:22 BP 149/100 03/14/18 11:22 Pulse Ox 97 03/14/18 11:22 Throat Pain/Nasal Course/Dx - Course Course Of Treatment: Sinusitis - Differential Dx/Diagnosis Provider Diagnoses: Sinusitis Discharge - Sign-Out/Discharge Documenting (check all that apply): Discharge/Admit/Transfer - Discharge Plan Condition: Stable Disposition: HOME Prescriptions: Amoxicillin/Clavulanate TAB* [Augmentin TAB 875*] 875 mg PO BID #20 tab methylPREDNISolone [Medrol Dosepak 4 MG*] 0 mg PO .SEE MADDIE INSTRUCTION #1 maddie Patient Education Materials: Sinusitis (ED) Referrals: Carmita Harris [Primary Care Provider] - Additional Instructions: If you develop a fever, shortness of breath, chest pain, new or worsening symptoms - please call your PCP or go to the ED. Your blood pressure was high at todays visit. Please see your primary provider within 4 weeks for recheck and re-evaluation. - Billing Disposition and Condition Condition: STABLE Disposition: HOME
== END 2018-03-14 11:52 | disposition home or self-care (01) ==
LOC: UCEAST 10:22
DX: J32.9 Chronic sinusitis, unspecified (principal); I10 Essential (primary) hypertension; K21.9 Gastro-esophageal reflux disease without esophagitis; F17.200 Nicotine dependence, unspecified, uncomplicated
CPT/HCPCS: 99212; G0463

== ENCOUNTER 2018-06-02 19:43 | Emergency (ER) | payer BC ==
--- NOTE | 2018-06-02 19:52 | UC ---
Eye Complaint HPI - HPI Summary HPI Summary: 47 yo male presents with left eye redness, itching, burning, and clear drainage since yesterday. 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 Denies fever, chills, vision changes, or eye pain. Does not wear glasses or contacts - History of Current Complaint Stated Complaint: LEFT EYE CONCERN Time Seen by Provider: 06/02/18 19:52 Hx Obtained From: Patient Onset/Duration: Sudden Onset Timing: Constant Severity Currently: None - Allergies/Home Medications Allergies/Adverse Reactions: Allergies Allergy/AdvReac Type Severity Reaction Status Date / Time dust mite extract AdvReac Intermediate Congestion Uncoded 06/02/18 19:59 Home Medications: Home Medications Lisinopril TAB* [Prinivil TAB*] 10 mg PO DAILY 06/02/18 [History Confirmed 06/02] PMH/Surg Hx/FS Hx/Imm Hx Cardiovascular History: Hypertension Other History Of: Negative For: HIV, Hepatitis B, Hepatitis C, Anticoagulant Therapy - Surgical History Surgical History: Yes Surgery Procedure, Year, and Place: 1998 LEFT knee. 2005 Deviated Septum repair. 2018 Left knee. 2017L ear tube placement - Family History Known Family History: Positive: Hypertension Negative: Cardiac Disease - Social History Occupation: Employed Full-time Lives: With Family Alcohol Use: Occasionally Substance Use Type: None Smoking Status (MU): Light Every Day Tobacco Smoker Type: Smokeless Tobacco - Immunization History Most Recent Influenza Vaccination: 07/30 Most Recent Tetanus Shot: UNSURE Review of Systems Constitutional: Negative Skin: Negative Eyes: Drainage, Eye Redness ENT: Negative Respiratory: Negative Cardiovascular: Negative Neurological: Negative Psychological: Negative All Other Systems Reviewed And Are Negative: Yes Physical Exam - Summary Physical Exam Summary: GENERAL: WDWN. No pain distress. SKIN: No rashes, sores, lesions, or open wounds. HEENT: Head: AT/NC Eyes: EOM intact. PERRLA. LEFT EYE: Mild scleral injection. Conjunctivia with mild erythema and inflammation. Mild clear/yellow discharge. RIGHT EYE: Conjunctiva clear without inflammation or discharge. No FBs appreciated Nose: NTTP maxillary and frontal sinus. NECK: Supple. Nontender. No lymphadenopathy. CHEST: No accessory muscle use. Breathing comfortably and in no distress. CV: Pulses intact. Cap refill <2seconds NEURO: Alert. CN II-XII grossly intact. PSYCH: Age appropriate behavior. Triage Information Reviewed: Yes Vital Signs: Vital Signs: Temp Pulse Resp BP Pulse Ox 98.1 F 92 15 153/102 98 06/02/18 19:57 06/02/18 19:57 06/02/18 19:57 06/02/18 19:57 06/02/18 19:57 Vital Signs Reviewed: Yes Eye Complaint Course/Dx - Course Course Of Treatment: Left eye conjunctivitis vs irritation. Will cover him with polytrim. No fluorescein exam was performed due to item not in stock. Dye is on resawyer back order. BP is elevated. Pt says that he suffers from HTN and recently had a change in BP meds by his PCP who is closely following him for this. - Differential Dx/Diagnosis Provider Diagnoses: Left eye conjunctivitis Discharge - Sign-Out/Discharge Documenting (check all that apply): Patient Departure - Discharge Plan Condition: Stable Disposition: HOME Prescriptions: Polymyx/Trimethoprim OPTH* [Polytrim OPHTH*] 1 drop LEFT EYE QID #1 btl Patient Education Materials: Conjunctivitis (ED) Referrals: Sarahi Nicholas MD [Primary Care Provider] - Additional Instructions: If you develop a fever, shortness of breath, chest pain, new or worsening symptoms - please call your PCP or go to the ED. Your blood pressure was high at todays visit. Please see your primary provider within 4 weeks for recheck and re-evaluation. 1) If your eye redness does not improve or if you develop vision changes or eye pain - please see your eye doctor immediately Per institutional requirements, I have reviewed the chart, however, I was not consulted specifically or made aware of this patient by the above midlevel provider. I did not personally evaluate, interact with , or disposition this patient. - Billing Disposition and Condition Condition: STABLE Disposition: Home
[2018-06-02 20:04] VITALS: BP 153/102
== END 2018-06-02 20:09 | disposition home or self-care (01) ==
LOC: UCCORT 19:43
DX: H10.9 Unspecified conjunctivitis (principal); I10 Essential (primary) hypertension; F17.290 Nicotine dependence, other tobacco product, uncomplicated; Z79.899 Other long term (current) drug therapy
CPT/HCPCS: 99212; G0463